=== PATIENT | female | born 1955 | race Caucasian/White ===

== ENCOUNTER 2017-12-26 07:58 | Emergency (ER) | payer OTHER ==
[~2017-12-26] VITALS: Ht 160 cm; Wt 83.1 kg
[~2017-12-26 07:58] MED LIST: CLC100 PO; ESTER C PO; META1TAB22 PO; OXYC-57 PO
[2017-12-26 08:03] VITALS: TEMP 36.8; O2SAT 96; Ht 160 cm; Wt 83.1 kg
[2017-12-26] MEDS ORDERED: ONDANSETRON INJ 2 MG/ML 2 ML VIAL IV STA (08:13)
[2017-12-26] MEDS ORDERED: SODIUM CHLORIDE 0.9% 1000ML 1,000 ML IV STA (08:13)
[2017-12-26 08:36] LABS: BASO % 0.1 %; BASO ABS # 0.01 K/uL (0-0.2); EOS % 1.8 %; EOS ABS # 0.27 K/uL (0-0.5); HEMATOCRIT 52.6 % (37-47); HEMOGLOBIN 18.2 g/dL (12.0-16.0); IG# 0.05 K/uL (0.00-0.02); LYMPH % 13.9 %; LYMPH ABS # 2.03 K/uL (1.2-3.4); MEAN CELL VOLUME 89.5 fL (80-100); MEAN CORPUSCULAR HGB CONC 34.6 g/dl (32-36); MONO % 3.6 %; MONO ABS # 0.53 K/uL (0.11-0.59); NEUT % 80.3 %; NEUT ABS # 11.72 K/uL (1.4-6.5); PLATELET COUNT 136 K/uL (130-400); RED CELL DISTRIBUTION WIDTH CV 14.4 % (11.5-14.5); RED CELL DISTRIBUTION WIDTH SD 46.8 fL (36.4-46.3); WHITE BLOOD COUNT 14.61 K/uL (4.8-10.8)
--- NOTE | 2017-12-26 08:39 | DIAGNOSTIC IMAGING REPORT ---
CHEST ONE VIEW PORTABLE CLINICAL HISTORY: 62 years-old Female presenting with CHEST PAIN. TECHNIQUE: Portable upright AP view of the chest was obtained. COMPARISON: None. FINDINGS: Cardiomediastinal silhouette normal. Lungs and pleural spaces clear. Osseous structures normal. Upper abdomen normal. IMPRESSION: 1. No acute cardiopulmonary disease. Electronically signed by: Kg Ellis M.D. 12/26/2017 8:37 AM Dictated Date/Time: 12/26/2017 8:37 AM
[2017-12-26] MEDS ORDERED: ATOR-26 PO (08:47)
[2017-12-26] MEDS ORDERED: LISI1TAB3 PO (08:47)
[2017-12-26] MEDS ORDERED: MELA1TAB5 PO (08:48)
[2017-12-26 08:58] LABS: ALBUMIN 3.4 gm/dl (3.4-5.0); ALT/SGPT 21 U/L (12-78); AST/SGOT 16 U/L (15-37); BLOOD UREA NITROGEN 24 mg/dl (7-18); CALCIUM 8.3 mg/dl (8.5-10.1); CARBON DIOXIDE 24 mmol/L (21-32); CREATININE 0.68 mg/dl (0.60-1.20); GLUCOSE 110 mg/dl (70-99); LIPASE 110 U/L (73-393); POTASSIUM 3.9 mmol/L (3.5-5.1); SODIUM 138 mmol/L (136-145)
[2017-12-26 09:03] LABS: ALKALINE PHOSPHATASE 77 U/L (45-117); TOTAL PROTEIN 6.8 gm/dl (6.4-8.2)
[2017-12-26 10:05] VITALS: BP 144/84; PULSE 79; O2SAT 97
--- NOTE | 2017-12-26 13:35 | EMERGENCY ROOM VISIT NOTE ---
ED Visit Note First contact with patient: 07:54 Chief Complaint: Chest pain. History of Present Illness: Ms. Carty is a 62 year-old white female who is brought into the ED via ambulance accompanied by her partner complaining of chest pain. EMS reports patient was stable and had no acute changes in route. They initiated an IV and gave the patient four 81 mg aspirin tablets. Historically patient reports as coronary artery disease and had an NM approximately 4 years ago. She reports her diseased arteries were not able to be stented because of their location. Additionally she reports she has a history of hypertension and dyslipidemia. She has a family history of coronary artery disease. Patient reports over the last few weeks patient has increased stress related to her son. She has been having intermittent episodes of chest pain that have self resolved but returned and one episode that was resolved with aspirin; that was approximately 1 week ago and since that episode she has not had any return of chest pain to last evening. Patient reports she developed an acute onset of moderate to severe chest pain in the midsternal area approximately 8 PM last night. She describes this pain as a heaviness sensation. Approximately 2 hours later the heaviness sensation resolved and she developed and indigestion-like sensation. Patient reports since the onset of indigestion she reports her discomfort has been constant. She reports a initially it was mild but gradually increased in intensity until approximately 4:00 this morning when she developed nausea and vomiting. She had not take any medications for her symptoms prior to arrival at the hospital. She has not identified any aggravating or alleviating factors related to her current symptoms. Patient denies fevers, chills, sweats, skin eruptions, skin color changes, upper respiratory tract symptoms, wheezing, cough shortness of breath, orthopnea , dependent edema, previous clots, claudication, cramping, recent surgery/ inactivity/extended travel, abdominal pain, diarrhea, constipation, rectal bleeding, black/tarry stools, urinary symptoms. Review of Systems: As noted above in history of present illness. All body systems were reviewed and found to be negative as noted above. Past Medical History: As previously noted. Current Medications: Lisinopril, Lipitor and melatonin. Allergies to Medications: Penicillin. Social History: Patient is not employed; she feels safe in her home environment ; she admits to tobacco use. Physical Examination: Vital Signs: Date Time Temp Pulse Resp B/P (MAP) Pulse Ox O2 Delivery O2 Flow Rate FiO2 12/26/17 10:05 79 18 144/84 97 12/26/17 09:36 84 12/26/17 09:17 79 20 156/80 96 Room Air 12/26/17 08:03 36.8 93 20 182/89 96 Room Air GENERAL: 62-year-old female in mild distress due to symptoms, nontoxic-appearing , afebrile and hemodynamically stable. NEUROLOGICAL: Awake, alert and oriented to person, place and time. Answering questions appropriately and following commands. Normal gait. Good hand eye coordination. SKIN: Warm, dry and pink. No soft tissue eruptions or trauma noted. HEENT: Atraumatic and normocephalic. PERRLA. Sclera white and conjunctiva pink. Oral cavity moist and pink. Pharynx is nonerythematous or edematous. Speech normal. No lymphadenopathy. Trachea midline. No jugular venous distention. No carotid bruits. BACK: No tenderness over the bony spine. No CVA tenderness. THORAX: Lungs sounds are clear to auscultation and equal bilaterally with symmetrical chest wall. No wheezing, rales or rhonchi. No crepitus, tenderness , subcutaneous air or deformities noted. HEART: Regular rate and rhythm. No gallops, rubs or murmurs are appreciated. No lifts, heaves or thrills. PMI is not displaced. ABDOMEN: Obese, soft and nontender. Positive bowel sounds in all quadrants. No guarding, rigidity or organomegaly. EXTREMITIES: Moves all extremities well on command and with purpose. All distal neurovascular statuses are intact and equal bilaterally. No dependent edema or calf tenderness/cords. ED Course: Patient is assessed as noted above. Laboratory Testing: Test 12/26/17 08:13 Range/Units White Blood Count 14.61 4.8-10.8 K/uL Red Blood Count 5.88 4.2-5.4 M/uL Hemoglobin 18.2 12.0-16.0 g/dL Hematocrit 52.6 37-47 % Mean Corpuscular Volume 89.5 80-100 fL Mean Corpuscular Hemoglobin 31.0 25-34 pg Mean Corpuscular Hemoglobin Concent 34.6 32-36 g/dl Platelet Count 136 130-400 K/uL Mean Platelet Volume 12.0 7.4-10.4 fL Neutrophils (%) (Auto) 80.3 % Lymphocytes (%) (Auto) 13.9 % Monocytes (%) (Auto) 3.6 % Eosinophils (%) (Auto) 1.8 % Basophils (%) (Auto) 0.1 % Neutrophils # (Auto) 11.72 1.4-6.5 K/uL Lymphocytes # (Auto) 2.03 1.2-3.4 K/uL Monocytes # (Auto) 0.53 0.11-0.59 K/uL Eosinophils # (Auto) 0.27 0-0.5 K/uL Basophils # (Auto) 0.01 0-0.2 K/uL RDW Standard Deviation 46.8 36.4-46.3 fL RDW Coefficient of Variation 14.4 11.5-14.5 % Immature Granulocyte % (Auto) 0.3 % Immature Granulocyte # (Auto) 0.05 0.00-0.02 K/uL Sodium Level 138 136-145 mmol/L Potassium Level 3.9 3.5-5.1 mmol/L Chloride Level 107 98-107 mmol/L Carbon Dioxide Level 24 21-32 mmol/L Anion Gap 7.0 3-11 mmol/L Blood Urea Nitrogen 24 7-18 mg/dl Creatinine 0.68 0.60-1.20 mg/dl Est Creatinine Clear Calc Drug Dose 89.8 ml/min Estimated GFR () 110.2 Estimated GFR (Non- 95.1 BUN/Creatinine Ratio 35.7 10-20 Random Glucose 110 70-99 mg/dl Calcium Level 8.3 8.5-10.1 mg/dl Total Bilirubin 0.4 0.2-1 mg/dl Direct Bilirubin < 0.1 0-0.2 mg/dl Aspartate Amino Transf (AST/SGOT) 16 15-37 U/L Alanine Aminotransferase (ALT/SGPT) 21 12-78 U/L Alkaline Phosphatase 77 45-117 U/L Troponin I < 0.015 0-0.045 ng/ml Total Protein 6.8 6.4-8.2 gm/dl Albumin 3.4 3.4-5.0 gm/dl Lipase 110 73-393 U/L Chest X-Rays: Were read by myself and the radiologist showing no acute infiltrates, effusions or pneumothorax. Normal heart silhouette and bony anatomy. No free air under the diaphragm. EKG: Was read by myself and reviewed with Dr. Dodge; shows normal sinus rhythm with possible left heart enlargement. No acute ischemic changes. This was compared to her previous and no acute changes were noted. Patient was hydrated with normal saline and received 4 mg of Zofran IV. Patient was reassessed multiple times during her stay in the emergency department. Patient's case was reviewed with Dr. Dodge; we agreed on diagnostic approach, treatment, disposition and plan. I did meet with the patient and felt because of her history recurrent chest pain that is been gradually getting worse could indicate unstable angina. I initially spoke to her about a possible observation stay and she agreed. After testing she then reported she did not want to stay even though I contacted the case management department and the hospitalist. I did review the risks and benefits of staying in the hospital and the risks and benefits of going home; after our discussion patient once again refused to stay and signed out AGAINST MEDICAL ADVICE. Patient was educated about today's findings and instructed on her treatment plan ; she verbalized understanding and agreement with this plan. Clinical Impression: Chest pain. Nausea/vomiting. Decision-Making: Initially my differential diagnosis I considered acute coronary syndrome, pneumothorax, pneumonia, pancreatitis, hepatitis and other causes. Disposition: Patient discharged home in stable condition accompanied by her partner; prior to departure she was reassessed and subjectively reported she was pain and symptom-free. Plan: Patient was encouraged to continue her current medications as prescribed. Patient was encouraged you 650 mg of acetaminophen every 6 hours as needed for pain. Patient was encouraged to follow-up with her limerock tower loader for definitive care and treatment. Patient was encouraged return the ED for worsening discomfort, fevers, vomiting or any new/concerning symptoms.
== END 2017-12-26 10:05 | disposition left against medical advice (07) ==
LOC: EDBD 07:58 → C.EDB 08:00
DX: R07.9 Chest pain, unspecified (principal); R11.2 Nausea with vomiting, unspecified; I25.10 Atherosclerotic heart disease of native coronary artery without angina pectoris; I25.2 Old myocardial infarction; I10 Essential (primary) hypertension; E78.5 Hyperlipidemia, unspecified; Z88.0 Allergy status to penicillin; Z72.0 Tobacco use; Z82.49 Family history of ischemic heart disease and other diseases of the circulatory system

== ENCOUNTER 2018-12-19 07:07 | Observation (INO) ==
--- NOTE | 2018-12-19 08:31 | History & Physical Bridge Note ---
Date of Service December 19, 2018 History & Physical Bridge Note I have examined the patient, reviewed the History & Physical and in the interval since the performance of the History & Physical I have noted the following changes of clinical significance: no changes noted
[2018-12-19] MEDS ORDERED: NiCARDipine HCL INJ 2.5 MG/ML 10 ML AMP ONE (08:34)
[2018-12-19] MEDS ORDERED: NITROGLYCERIN/D5W 100MCG/ML 20ML SYR ONE (08:34)
[2018-12-19] MEDS ORDERED: fentaNYL citrate 100 MCG/2 ML VIAL ONE (08:34)
[2018-12-19] MEDS ORDERED: MIDAZOLAM HCL 1 MG/ML 2ML VIAL ONE (08:34)
[2018-12-19] MEDS ORDERED: HEPARIN (PORCINE) 1000 UNIT/ML 10 ML (CATH LAB USE ONLY) ONE (08:34)
[2018-12-19] MEDS ORDERED: SODIUM CHLORIDE 0.9% 1000ML 1,000 ML IV SCH ×2 (08:45→10:00)
--- NOTE | 2018-12-19 09:24 | Cardiac Catheterization ---
Date of Service December 19, 2018 Cardiac Cath Report Cardiac Cath Report Procedure: 1. Left heart catheterization 2. Coronary angiography 3. Left ventriculography History: This is a 63-year-old female with known coronary artery disease and smoking, who presented for cardiac risk assessment regarding lumbar fusion. She was noted to have an abnormal EKG and went on to have a nuclear stress test that was positive. The patient was referred for cardiac catheterization. This patient also approximately 6 months ago was diagnosed with polycythemia and has been receiving phlebotomy. Procedure summary: After informed consent was obtained the patient was taken to the cardiac catheterization lab where she was prepped and draped in usual manner. A right transradial approach was performed. Preformed 5 Iranian diagnostic catheters were utilized for the coronary angiograms. A 5 Iranian pigtail catheter was utilized for the left heart pressures and left ventriculogram. Following the procedure the patient underwent coronary intervention and was returned to the holding area the Sap Sd Analyst in stable condition. ACC data: AUC score 8 Start time 8:50 AM End time 9:20 AM Opening aortic pressure 211/120 Left ventricular pressure 229/18 Closing aortic pressure 214/86 Sedation 1 mg intravenous Versed IV fluid 50 cc normal saline Contrast 108 cc Optiray Fluoroscopy time 4.8 minutes Radiation 1594 mGy DAP 10,936 cGy Right dominant system Coronary angiography: Selective injections of the left coronary artery reveal minor nonobstructive disease of the left main trunk. There is a large ramus branch from the left main trunk which is patent. The left circumflex artery consists principally of a large lateral marginal branch which is patent. The LAD does wrap around the apex of the heart. Gives off 1 medium size diagonal branch before the first septal launch leader. The LAD system has diffuse nonobstructive disease. Selective injections of the right coronary artery reveal it to be dominant. In the mid segment of the right coronary artery there is an 80-90% stenosis. The remainder the right coronary artery is patent. Left ventriculogram: The left ventricle is of normal size. There is normal systolic function. The mitral valve is competent. The aortic root and ascending aorta have normal morphology. Summary: The patient has diffuse minor coronary artery disease however, the right coronary artery has a high-grade mid to proximal stenosis. Normal left ventricular function. Recommendations: The patient will undergo coronary intervention on the right coronary artery.
[2018-12-19] MEDS ORDERED: CLOPIDOGREL BISULFATE 300 MG TAB ONE (09:54)
[2018-12-19] MEDS ORDERED: ONDANSETRON INJ 2 MG/ML 2 ML VIAL IV PRN (09:58)
--- NOTE | 2018-12-19 10:02 | Post Anesthesia Assessment ---
Date of Service December 19, 2018 Post Sedation Assessment Vital Signs Temp Pulse Resp BP Pulse Ox 12/19/18 07:29 36.4 C L 64 18 203/103 H 98 Recovery Score Activity: Moves 4 extremities Respiration: Deep Breath/Cough Circulation: +/-20% PreAnes Value Consciousness: Fully Awake Oxygen Saturation: O2 needed for >90% Discharge Sedation Level of Care: Fast Track Phase II Post Sedation Plan On clinical assessment, the patient appears to have tolerated the sedation without complications. Patient is recovering as anticipated. Patient will continue to be monitored by nursing and may be discharged when sedation discharge criteria are met per below protocol. Upon Completions of procedure and additional 15 minutes continue every 5 minute vital signs and the P.A.R. score; then discharge to a Phase I or Fast Track to Phase II per the following guidelines: * Discharge Patient to appropriate Phase II area if PAR is 8 or greater or return to pre- procedure baseline. The post - procedure orders will be as directed. * If PAR score is less than 8 or not return to pre-procedure baseline then patient will follow Phase I monitoring till PAR is reached for Phase II. The Phase I may be done in procedure room or may call to secure a Phase I area. * If naloxone or flumazenil are used for reversal, hold in Phase I for continued monitoring from when last reversal dose was given for a minimum of 60 minutes or longer pending the nurse and/or physician discretion of patient condition before discharge to Phase II. Please call the Sedation Physician to re-evaluate and complete post-note for discharge to Phase II area. Do NOT discharge from procedure sedation or Phase 1 until post- sedation evaluation note is complete by procedure /sedation MD Sedation Discharge Instructions to be given to the patient at discharge to home.
--- NOTE | 2018-12-19 10:15 | Cardiac Catheterization ---
Cardiac Cath Procedure Full Procedure Date December 19, 2018 Pre-Procedure Diagnosis Pre-Procedure Diagnosis: Positive Stress Test AUC Score AUC Score: 7 Post-Procedure Diagnosis Post-Procedure Diagnosis: Severe CAD and Successful PCI Procedure(s) Performed Procedure(s) Performed: Coronary Angiography and Bare Metal Stent Boom Conveyor Operator Steve Allen MD Pharmaceutical Laboratory Technician(s) Sergo Urena Estimated Blood Loss Estimated Blood Loss: 10 Medication(s) Medication(s): Clopidogrel, Fentanyl, Heparin, Nicardipine, Nitroglycerin and Versed Summary of Findings Indication: Abnormal stress test Access: 6 Fr right radial artery Catheters: JR4 guide Findings: For full details of patient's coronary angiography please cath report dictated by Dr. Kirk. Briefly, patient found to have severe single vessel disease including a 70-80 % stenosis involving the mid RCA. Decision to proceed with PCI. Procedure: RCA cannulated with JR4 guide BMW wire placed into distal vessel Mid RCA lesion dilated with 3.0 balloon Mid RCA lesion stented with 3.5 x 18 mm integrity bare-metal stent Stent postdilated with 3.75 NC balloon IC vasodilators administered for spasm Post procedure SENDY III flow, no evidence of coronary complications, chest pain- free. Arterial closure: TR band Summary: 1. Successful PCI of mid RCA with single bare-metal stent (3.5 x 18 mm integrity; postdilated with 3.75 NC). Recommendations: Admit to telemetry for observation Loaded with clopidogrel 600 mg in dental lab technician Continue dual antiplatelet therapy with aspirin, clopidogrel for at least one month Hemodynamics Rest Ao:: 99/36/61 Final Ao: 112/55/79 LV: Recommendations Recommendations: PCI without planned CABG Specimens Specimens: None Radiation Exposure (mGy) 3071 Contrast (mls) 170 Fluids (cc crystalloids) Fluids (cc crystalloids): 100 Drains Drains: None Anesthesia Moderate Procedural Complication(s) None Disposition PCU ACC Data: Home Help Aide Cardiac Status Clinical evaluation leading to the procedure CAD Presenation: Positive Stress Test Anginal Classification: CCS IV Heart Failure: No Cardiogenic Shock within 24 Hours: No Cardiac Arrest within 24 Hours: No Imaging Studies Past 6 Months: Yes Stress Studies Past 6 Months: Yes Stress Echocardiogram: Yes - Positive Diagnostic Physicians Name: Steve Allen MD Status: Elective Closure Device Percutaneous Entry Location: Radial Closure Device: Radial Band Recommendations: PCI without planned CABG PCI Indication: + Stress Test Lesion Segment Name: Mid LAD Culprit Artery: Yes Stenosis Prior to Rx (%): 70-80 Chronic Total Occlusion: No IVUS: No FFR: No Pre-Procedure SENDY Flow: 3 Previously Treated Lesion: No Lesion Complexity: Non-High/Non-C Lesion Length (mm): 12 Thrombus Present: No Bifurcation Lesion: No Guidewire Across Lesion: Stenosis Post-Procedure (%): 0 Post-Procedure SENDY Flow: 3 Devices(s) Deployed: Yes Yes Intraprocedure Events Significant Disection: No Perforation: No
--- NOTE | 2018-12-19 12:10 | History & Physical Report ---
Date of Service December 19, 2018 Assessment & Plan (1) S/P cardiac cath: -Patient admitted for post cardiac cath observation -Patient presented today for planned cardiac catheterization after outpatient abnormal stress test -Received BMS to RCA, other details as outlined in cardiac cath summary -Patient currently chest pain-free -Continue home doses of metoprolol, lisinopril, isosorbide, rosuvastatin -Aspirin and Plavix as per cardiology (2) Hypertension: -BP controlled, continue lisinopril, metoprolol, isosorbide (3) Polycythemia: -Monitor Hgb (4) DVT prophylaxis: -SCDs, ambulate History of Present Illness Chief Complaint: Status post planned cardiac cath Primary Care Provider: Jude Couch DO 63-year-old female who is status post planned cardiac catheterization today with Dr. Allen. As an outpatient, patient was undergoing preoperative evaluation for back surgery and had a stress test that was abnormal. Patient was therefore referred for planned cardiac catheterization today. Patient reports she has been asymptomatic. Patient has history of an NSTEMI in the past in 2012 with symptoms being nausea, vomiting, right arm numbness. Patient denies any of the symptoms as well as chest pain and shortness of breath. No lightheadedness, dizziness, diaphoresis, syncopal events. She denies abdominal pain, diarrhea. No other recent illnesses, fevers, chills. She denies any urinary symptoms. At the time my exam, patient is resting in bed in no acute distress. She currently does not denies any chest pain. Vital signs are stable. Allergies Allergy/AdvReac Type Severity Reaction Status Date / Time Penicillins Allergy Unknown THROAT Unverified 12/19/18 07:40 SWELLING Home Medications Home Medications Medication Instructions Recorded Confirmed Type amlodipine [Norvasc] 2.5 mg PO DAILY 12/19/18 12/19/18 History aspirin 162 mg PO DAILY 12/19/18 12/19/18 History epinephrine [EpiPen] 0.3 mg IM Q3H PRN 12/19/18 12/19/18 History gabapentin 300 mg PO TID 12/19/18 12/19/18 History isosorbide mononitrate 30 mg PO DAILY 12/19/18 12/19/18 History lisinopril 30 mg PO DAILY 12/19/18 12/19/18 History metaxalone 800 mg PO TID 12/19/18 12/19/18 History metoprolol tartrate 12.5 mg PO BID 12/19/18 12/19/18 History montelukast [Singulair] 10 mg PO PM 12/19/18 12/19/18 History omeprazole magnesium [Prilosec OTC] 20 mg PO BID 12/19/18 12/19/18 History rosuvastatin [Crestor] 20 mg PO DAILY 12/19/18 12/19/18 History Past Med/Surg History Medical History Polycythemia (Chronic) Hypertension (Chronic) CAD (coronary artery disease) (Chronic) Cardiac cath 2012 demonstrated CAD however no lesions were amenable to intervention Dyslipidemia (Chronic) Surgical History S/P lumbar fusion (Chronic) Family History Father Prostate cancer Mother Pancreatic cancer Social History Preferred Language: [place] Formula Technician Required: Yes Beliefs That Will Affect Care: None Current Living Situation: Spouse Other Information That Helps Us Care for You: No Feels Safe at Home: Yes Safety Concerns: Feels Safe At This Time Smoking Status: Current every day smoker Hx Alcohol Use: Yes Hx Substance Use: No Review of Systems ROS per HPI, all other systems reviewed and negative Physical Exam Vital Signs (Past 24 Hours): Last Vital Signs Temp 36.7 C 12/19/18 10:06 Pulse 70 12/19/18 11:15 Resp 15 12/19/18 11:15 BP 146/81 H 12/19/18 10:31 Pulse Ox 98 12/19/18 11:15 Constitutional: WD/WN, vitals as above Eyes: PERRL, conjunctivae normal, anicteric sclerae ENMT: external ear and nose normal, oropharynx normal Respiratory: normal respiratory effort, lungs clear to auscultation Cardiovascular: Rate/Rhythm: regular rate and regular rhythm Vessels: normal peripheral pulses Extremities: no edema Gastrointestinal (Abdomen): normal bowel sounds, soft, nontender, no hepatosplenomegaly Musculoskeletal: no cyanosis or clubbing, extremities motor strength 5/[address] to right wrist, dry and intact without any seepage, CSM checks intact right hand Skin: no rashes, warm and dry Neurologic: PERRL, EOMI, accommodation nl, no face palsy, no dysarthria Psychiatric: A+Ox3, euthymic affect Results & Data Diagnostic Findings Coronary angiography: Selective injections of the left coronary artery reveal minor nonobstructive disease of the left main trunk. There is a large ramus branch from the left main trunk which is patent. The left circumflex artery consists principally of a large lateral marginal branch which is patent. The LAD does wrap around the apex of the heart. Gives off 1 medium size diagonal branch before the first septal student advisor. The LAD system has diffuse nonobstructive disease. Selective injections of the right coronary artery reveal it to be dominant. In the mid segment of the right coronary artery there is an 80-90% stenosis. The remainder the right coronary artery is patent. Code Status & VTE Plan VTE Prophylaxis Plan VTE Prophylaxis will be ordered: Yes Supervising Physician Co-Signing Physician Notes Patient is a 63-year-old female with history of coronary artery disease status post stent, polycythemia vera, hypertension, tobacco use disorder and other problems presents for elective cardiac catheterization by Dr. Allen today. Patient had cardiac catheterization which is suggestive of diffuse minor coronary artery disease but showed significant high-grade mid to proximal RCA stenosis. Patient had bare-metal stent to RCA. Postprocedure patient is doing well. Denies any chest pain, shortness of breath, dizziness, nausea. On exam patient is moderately built and nourished, no distress, lungs are clear to auscultation, S1-S2, no murmur, abdomen is soft nontender, neurologically no focal deficits, no pedal edema. Patient is admitted under observation. Continue aspirin, Plavix, statin, metoprolol, lisinopril, isosorbide. Patient's last phlebotomy for polycythemia vera is in November 2018. Monitor CBC. Counseled to quit smoking. Cardiology on board. I personally reviewed the record. Patient is interviewed and examined at bedside. Patient's care is coordinated with Larissa Emery NP. Please refer to the documentation above for details of patient's presentation and for discussion of other issues.
[2018-12-19] MEDS: GABAPENTIN 300 MG CAP PO SCH ×2 (14:10→20:05)
[2018-12-19] MEDS: METOPROLOL TARTRATE 25 MG TAB PO SCH (20:25)
[2018-12-19] MEDS ORDERED: MONTELUKAST SODIUM 10 MG TABLET PO SCH (21:00)
[2018-12-19] MEDS: METAXALONE 800 MG TABLET PO SCH (21:11)
[2018-12-20 06:31] LABS: Basophils # (auto) 0.02 K/uL (0-0.2); Basophils % (auto) 0.2 %; Eosinophils # (auto) 0.21 K/uL (0-0.5); Eosinophils % (auto) 1.8 %; Hematocrit (blood only) 45.3 % (37-47); Hemoglobin 15.2 g/dL (12.0-16.0); Immature Granulocytes # (auto) 0.05 K/uL (0.00-0.02); Immature Granulocytes % (auto) 0.4 %; Lymphocytes # (auto) 3.13 K/uL (1.2-3.4); Lymphocytes % (auto) 27.3 %; Mean Corpuscular Hgb Conc 33.6 g/dL (32-36); Mean Corpuscular Volume 89.3 fL (80-100); Mean Platelet Volume 12.2 fL (7.4-10.4); Monocytes % (auto) 7.8 %; Neutrophils # (auto) 7.17 K/uL (1.4-6.5); Neutrophils % (auto) 62.5 %; Platelet Count 144 K/uL (130-400); RDW Coefficient of Variation 14.4 % (11.5-14.5); RDW Standard Deviation 46.6 fL (36.4-46.3); Red Blood Count 5.07 M/uL (4.2-5.4); White Blood Count 11.48 K/uL (4.8-10.8)
[2018-12-20 07:05] LABS: BUN Creatinine Ratio 25.4 (10-20); Calcium 8.4 mg/dl (8.5-10.1); Creatinine Clr Calc Pharmacy 84.5 ml/min; Est GFR (African American) 106.5; Est GFR (Non-African American) 91.9; Magnesium 2.1 mg/dl (1.8-2.4); Potassium 3.8 mmol/L (3.5-5.1)
[2018-12-20] MEDS: METOPROLOL TARTRATE 25 MG TAB PO SCH (07:46)
[2018-12-20] MEDS: GABAPENTIN 300 MG CAP PO SCH (07:47)
[2018-12-20] MEDS: METAXALONE 800 MG TABLET PO SCH (07:48)
[2018-12-20] MEDS ORDERED: METOPROLOL TARTRATE 25 MG TAB PO SCH (09:00)
[2018-12-20] MEDS ORDERED: LISINOPRIL 10 MG TAB PO SCH (09:00)
[2018-12-20] MEDS ORDERED: AMLODIPINE BESYLATE 5 MG TAB PO SCH (09:00)
[2018-12-20] MEDS ORDERED: ASPIRIN 81 MG ECTAB PO SCH (09:00)
[2018-12-20] MEDS ORDERED: ROSUVASTATIN CALCIUM 20 MG TAB PO SCH (09:00)
[2018-12-20] MEDS ORDERED: PANTOprazole 40 MG TAB PO SCH (09:00)
[2018-12-20] MEDS ORDERED: CLOPIDOGREL BISULFATE 75 MG TAB PO SCH (09:00)
[2018-12-20] MEDS ORDERED: ISOSORBIDE MONO EXTENDED REL 30 MG TABCR PO SCH (09:00)
--- NOTE | 2018-12-20 10:20 | Discharge Summary ---
Date of Service December 20, 2018 Admission HPI 63-year-old female who is status post planned cardiac catheterization today with Dr. Kirk. As an outpatient, patient was undergoing preoperative evaluation for back surgery and had a stress test that was abnormal. Patient was therefore referred for planned cardiac catheterization today. Patient reports she has been asymptomatic. Patient has history of an NSTEMI in the past in 2012 with symptoms being nausea, vomiting, right arm numbness. Patient denies any of the symptoms as well as chest pain and shortness of breath. No lightheadedness, dizziness, diaphoresis, syncopal events. She denies abdominal pain, diarrhea. No other recent illnesses, fevers, chills. She denies any urinary symptoms. At the time my exam, patient is resting in bed in no acute distress. She currently does not denies any chest pain. Vital signs are stable. Principal Diagnosis Principal Diagnosis Coronary artery disease status post coronary stent Discharge Exam Constitutional WD/WN, vitals as above Eyes PERRL, conjunctivae normal, anicteric sclerae ENMT external ear and nose normal, oropharynx normal Mallampati Class: III Respiratory normal respiratory effort, lungs clear to auscultation Cardiovascular Rate/Rhythm: regular rate and regular rhythm Vessels: normal peripheral pulses Extremities: no edema Gastrointestinal (Abdomen) normal bowel sounds, soft, nontender, no hepatosplenomegaly Musculoskeletal no cyanosis or clubbing, extremities motor strength 5/5 Skin no rashes, warm and dry Neurologic PERRL, EOMI, accommodation nl, no face palsy, no dysarthria Psychiatric A+Ox3, euthymic affect Discharge Data Allergies Allergy/AdvReac Type Severity Reaction Status Date / Time Penicillins Allergy Unknown THROAT Unverified 12/19/18 07:40 SWELLING Consultations 12/19/18 14:02 Consult Cardiology Routine Procedures Performed Operation Date: 12/19/18 08:00 Actual Procedures p Cath, Left with Cors and Vent - Isidro Kirk DO s Cineradiography w/Routine Exam - Isidro Kirk, DO s Bare Metal Stent SGL Vessel - Mazin Allen MD Ordered Studies 12/19/18 06:40 CL Cath Imgs for PACS use only Routine Hospital Course (1) S/P cardiac cath: -Patient admitted for post cardiac cath observation -Patient presented today for planned cardiac catheterization after outpatient abnormal stress test -Received BMS to [facility]CA, other details as outlined in cardiac cath summary -Patient currently chest pain-free -Continue home doses of metoprolol, lisinopril, isosorbide, rosuvastatin -Aspirin and Plavix as per cardiology (2) Hypertension: -BP controlled, continue lisinopril, metoprolol, isosorbide (3) Polycythemia: -Monitor Hgb Total Time Total Time Spent Total Time Spent (In Minutes): A total of 30 minutes was spent on this discharge. Discharge Plan Discharge Items Patient Disposition: Home - Self-Care Reason For Visit: PCI Discharge Diagnosis: Coronary artery disease status post coronary artery stents Discharge Goals: Decrease discomfort Activity: Resume your previous activity Non-emergency contact: Lining Closer Call non-emergency contact if: you have any medication questions, your symptoms worsen, your pain is not controlled, your pain is worsening, your pain is unusual for you, your pain is concerning for you, you have a fever, your temperature is above 100.5, your wound has increased redness, your wound has increased drainage and your wound pain has increased Follow-up/Referrals: Jude Couch DO [Primary Care Provider] - Isidro Kirk DO [Lining Closer] - Diet: Heart Healthy Add Provider Instructions: ACTIVITY RECOMMENDATIONS: Excess manipulation of the wrist should be avoided for the next 24-48 hours. * No lifting over 2 pounds (approximately a 1/2 gallon of milk) with the utilized arm for 24 hours. * No strenuous activity such as bowling or tennis for 3 days. * Keep the site of the procedure covered with a bandage for 24 hours. *You may shower the day after the procedure. Do not take a tub bath or submerge the puncture site in water for the next 3 days. *Do not operate any motorized equipment for 3 days. SPECIAL CARE INSTRUCTIONS: The site may be slightly bruised and sore following your procedure. Should any of the following occur, contact the Dr. who performed your procedure. 1. Redness/inflammation, swelling, chills, or fever, or colored drainage at procedure site within 3-7 days after your procedure. 2. Coldness, discoloration, ongoing numbness, severe pain, or swelling. Expect mild tingling of hand and tenderness at the puncture site for up to three days. If this persists beyond three days, or other symptoms develop, notify the Dr. who performed your procedure. BLEEDING: If the procedure site on your wrist begins to bleed, do not panic 1. Place 1 or 2 fingers firmly just slightly above the insertion site to stop the bleeding. You may be able to feel your pulse as you hold pressure. 2. Lift your finger after 5 minutes to see if the bleeding has stopped. 3. Once the bleeding has stopped, gently wipe the wrist area clean with a bandage. * If the bleeding from your wrist does not stop after 10 minutes, or if there is a large amount of bleeding or spurting, call 911 (do not drive yourself to the hospital). SKIN IRRITATION: * You may experience some redness and/or swelling in the area where radiation was administered. If any skin irritation occurs, please contact your family physician. FOLLOW UP VISIT: Keep any scheduled doctor appointments. Prescriptions: New clopidogrel 75 mg Tablet 75 mg PO QAM Qty: 30 RF: 0 aspirin [Ecotrin Low Strength] 81 mg Tablet,Delayed Release (Dr/Ec) 81 mg PO QAM Qty: 100 RF: 0 Continued amlodipine [Norvasc] 2.5 mg Tablet 2.5 mg PO DAILY RF: 0 isosorbide mononitrate 60 mg Tablet Extended Release 24 Hr 30 mg PO DAILY RF: 0 gabapentin 300 mg Capsule 300 mg PO TID RF: 0 aspirin 81 mg Tablet,Chewable 162 mg PO DAILY RF: 0 montelukast [Singulair] 10 mg Tablet 10 mg PO PM RF: 0 epinephrine [EpiPen] 0.3 mg/0.3 mL Auto-Injector 0.3 mg IM Q3H PRN (Reason: Allergic Reaction) RF: 0 metaxalone 800 mg Tablet 800 mg PO TID RF: 0 rosuvastatin [Crestor] 40 mg Tablet 20 mg PO DAILY RF: 0 metoprolol tartrate 25 mg Tablet 12.5 mg PO BID RF: 0 lisinopril 30 mg Tablet 30 mg PO DAILY RF: 0 Discontinued Prilosec OTC 20 mg Tablet,Delayed Release (Dr/Ec) 20 mg PO BID RF: 0 Stand-Alone Forms: [facility] Discharge Orders: Discharge Order (Routine); Ordered 12/20/18 Ordered By: Isidro Kirk Admission Data Admit Date/Time: 12/19/18 09:35 Attending Provider: Isidro Kirk Admit Provider: Kin Jolly Primary Care Provider: Jude Couch Other Providers: Isidro Kirk Service: Telemetry
--- NOTE | 2018-12-20 10:37 | Discharge Summary ---
Date of Service December 20, 2018 Admission HPI 63-year-old female who is status post planned cardiac catheterization today with Dr. Kirk. As an outpatient, patient was undergoing preoperative evaluation for back surgery and had a stress test that was abnormal. Patient was therefore referred for planned cardiac catheterization today. Patient reports she has been asymptomatic. Patient has history of an NSTEMI in the past in 2012 with symptoms being nausea, vomiting, right arm numbness. Patient denies any of the symptoms as well as chest pain and shortness of breath. No lightheadedness, dizziness, diaphoresis, syncopal events. She denies abdominal pain, diarrhea. No other recent illnesses, fevers, chills. She denies any urinary symptoms. At the time my exam, patient is resting in bed in no acute distress. She currently does not denies any chest pain. Vital signs are stable. Principal Diagnosis Principal Diagnosis Coronary artery disease Discharge Data Allergies Allergy/AdvReac Type Severity Reaction Status Date / Time Penicillins Allergy Unknown THROAT Unverified 12/19/18 07:40 SWELLING Consultations 12/19/18 14:02 Consult Cardiology Routine Procedures Performed Operation Date: 12/19/18 08:00 Actual Procedures p Cath, Left with Cors and Vent - DO gail Henderson Cineradiography w/Routine Exam - DO gail Henderson Bare Metal Stent SGL Vessel - Mazin Allen MD Ordered Studies 12/19/18 06:40 CL Cath Imgs for PACS use only Routine Total Time Total Time Spent Total Time Spent (In Minutes): 30 minutes Discharge Plan Discharge Items Patient Disposition: Home - Self-Care Reason For Visit: PCI Discharge Diagnosis: Coronary artery disease status post coronary artery stents Discharge Goals: Decrease discomfort Activity: Resume your previous activity Non-emergency contact: Outside Installer Apprentice Call non-emergency contact if: you have any medication questions, your symptoms worsen, your pain is not controlled, your pain is worsening, your pain is unusual for you, your pain is concerning for you, you have a fever, your temperature is above 100.5, your wound has increased redness, your wound has increased drainage and your wound pain has increased Follow-up/Referrals: Isidro Kirk DO [Outside Installer Apprentice] - Jude Couch DO [Primary Care Provider] - Diet: Heart Healthy Add Provider Instructions: ACTIVITY RECOMMENDATIONS: Excess manipulation of the wrist should be avoided for the next 24-48 hours. * No lifting over 2 pounds (approximately a 1/2 gallon of milk) with the utilized arm for 24 hours. * No strenuous activity such as bowling or tennis for 3 days. * Keep the site of the procedure covered with a bandage for 24 hours. *You may shower the day after the procedure. Do not take a tub bath or submerge the puncture site in water for the next 3 days. *Do not operate any motorized equipment for 3 days. SPECIAL CARE INSTRUCTIONS: The site may be slightly bruised and sore following your procedure. Should any of the following occur, contact the Dr. who performed your procedure. 1. Redness/inflammation, swelling, chills, or fever, or colored drainage at procedure site within 3-7 days after your procedure. 2. Coldness, discoloration, ongoing numbness, severe pain, or swelling. Expect mild tingling of hand and tenderness at the puncture site for up to three days. If this persists beyond three days, or other symptoms develop, notify the Dr. who performed your procedure. BLEEDING: If the procedure site on your wrist begins to bleed, do not panic 1. Place 1 or 2 fingers firmly just slightly above the insertion site to stop the bleeding. You may be able to feel your pulse as you hold pressure. 2. Lift your finger after 5 minutes to see if the bleeding has stopped. 3. Once the bleeding has stopped, gently wipe the wrist area clean with a bandage. * If the bleeding from your wrist does not stop after 10 minutes, or if there is a large amount of bleeding or spurting, call 911 (do not drive yourself to the hospital). SKIN IRRITATION: * You may experience some redness and/or swelling in the area where radiation was administered. If any skin irritation occurs, please contact your family physician. FOLLOW UP VISIT: Keep any scheduled doctor appointments. Prescriptions: New clopidogrel 75 mg Tablet 75 mg PO QAM Qty: 30 RF: 0 aspirin [Ecotrin Low Strength] 81 mg Tablet,Delayed Release (Dr/Ec) 81 mg PO QAM Qty: 100 RF: 0 Continued amlodipine [Norvasc] 2.5 mg Tablet 2.5 mg PO DAILY RF: 0 isosorbide mononitrate 60 mg Tablet Extended Release 24 Hr 30 mg PO DAILY RF: 0 gabapentin 300 mg Capsule 300 mg PO TID RF: 0 aspirin 81 mg Tablet,Chewable 162 mg PO DAILY RF: 0 montelukast [Singulair] 10 mg Tablet 10 mg PO PM RF: 0 epinephrine [EpiPen] 0.3 mg/0.3 mL Auto-Injector 0.3 mg IM Q3H PRN (Reason: Allergic Reaction) RF: 0 metaxalone 800 mg Tablet 800 mg PO TID RF: 0 rosuvastatin [Crestor] 40 mg Tablet 20 mg PO DAILY RF: 0 metoprolol tartrate 25 mg Tablet 12.5 mg PO BID RF: 0 lisinopril 30 mg Tablet 30 mg PO DAILY RF: 0 Discontinued Prilosec OTC 20 mg Tablet,Delayed Release (Dr/Ec) 20 mg PO BID RF: 0 Stand-Alone Forms: [facility] Discharge Orders: Discharge Order (Routine); Ordered 12/20/18 Ordered By: Isidro Kirk Admission Data Admit Date/Time: 12/19/18 09:35 Attending Provider: Isidro Kirk Admit Provider: Kin Jolly Primary Care Provider: Jude Couch Other Providers: Isidro Kirk Service: Telemetry
[2018-12-20 11:06] VITALS: BP 161/70; PULSE 65; TEMP 97.7; O2SAT 97
== END 2018-12-20 11:25 | disposition home or self-care (01) ==
LOC: CC 07:07 → 1E 07:07 → 2E 22:12